=== PATIENT | male | born 1955 | race Caucasian/White ===

== ENCOUNTER → 2017-09-28 11:27 | Outpatient (CLI) | payer OTHER, SELFPAY ==
--- NOTE | 2017-09-28 | CYSPIN_PTH ---
PATIENT: FABIANO PABLO LOC: [facility] U#:[id number] AGE/SX: 69/M ROOM: RE09/28/[address]: ARTURO English : 1955 BED: DIS: SPEC #: [id number] RECD: 09/28/17 13:29 STATUS: JANIYA CLAUDE #: [id number] WILLIE: 09/28/17 00:[address]: Davida Galeas NP DEPT: CYTOLOGY RECD BY: Franklin Song ENTERED: 09/28/17 13:30 SP TYPE: CYSPIN FL OT DR: Dr. Martin Rutledge MD Tissues: Urine Procedures: Pap Stain (control) Special Stain Group II Cytospin Fluid HEADER OPERATION: Not noted PRE-OP DIAGNOSIS: Hematuria TISSUE SUBMITTED: Urine for cytology DIAGNOSIS CYTOLOGY Urine for cytology (cytospin): A few mildly atypical urothelial cells noted. SJ:yadiel 09/29/17 COMMENT Clinical correlation and appropriate follow up are necessary. CYTOLOGY STUDY Slides are reviewed. CYTOLOGY GROSS Received is 10 ml of clear gold fluid labeled with the patient's name and and designated per the requisition as urine. Submitted for cytology preparation. 09/28/17 TC:5 CPT: 75879
[2017-09-28 11:29] LABS: Cytology, Body Fluid / CSF SEE PATHOLOGY REPORT
== END ==
PROVIDERS: Family Provider Family Medicine; PCP Family Medicine; Visit Provider Nurse Practitioner Adult Health
DX: R31.9 Hematuria, unspecified (principal)
CPT/HCPCS: 88108; 88313

== ENCOUNTER 2018-03-14 05:57 | Day surgery (SDC) | payer OTHER, SELFPAY ==
[2018-03-14] VITALS (8 sets, daily range): BP systolic 102–139; BP diastolic 76–106; PULSE 73–83; RESP 16; TEMP 36.4–36.5; O2SAT 93–99
--- NOTE | 2018-03-14 06:29 | PCM.HP.STD ---
Problem List (1) Personal history of colonic polyps Status: Acute History of Present Illness Date of Admission: 03/14/18 The patient is a 62 year old M who has a history of personal history of colon polyps. His most recent colonoscopy was January 14, 2012. I removed a 9 mm polyp from the distal descending colon. Over the past 3 years he has had seizure activity which is required treatment. He states that that is under control. He is not aware of any family history of colon polyps or colon cancer. He has not had any bright red blood per rectum or melena. No abdominal pain. No unexpected weight loss. I saw him in the office on November 25, 2017. In the interim he is been working and has had several trips. This was the first time that would be convenient for him to pursue his endoscopy. There is been no health changes since that time. Past Medical History Past Medical History (Chronic Problems): Chronic Problems (Last Updated 11/25/17 @ 08:02 by Livier Guadalupe) Migraines (Chronic) Hypertension (Chronic) Seizure disorder (Chronic) Medical History: Medical History (Last Updated 11/25/17 @ 08:02 by Livier Guadalupe) Personal history of colonic polyps (Acute) Z86.010 Depression (Acute) F32.9 Sleep apnea (Acute) G47.30 Migraines (Chronic) G43.909 Hypertension (Chronic) I10 Seizure disorder (Chronic) G40.909 Allergies acetaminophen [From Vicodin] Allergy (Verified 03/13/18 09:41) Other hydrocodone [From Vicodin] Allergy (Verified 03/13/18 09:41) Other Home Medications: Ambulatory Orders Medication Instructions Recorded Phenobarbital 64.8 mg PO BID 06/08/13 Sumatriptan Succinate [Imitrex] 50 mg PO DAILY PRN PRN 06/08/13 Escitalopram Oxalate [Lexapro] 10 mg PO DAILY 06/22/16 Meloxicam [Mobic] 7.5 mg PO DAILY 06/22/16 Aspirin/Acetaminophen/Caffeine 1 each PO PRN PRN 03/13/18 [Excedrin Migraine Caplet] Calcium (Elemental) [Os-Jc 500] 500 mg PO DAILY@0800 03/13/18 levETIRAcetam tablet [Keppra] 2,000 mg PO BID 03/13/18 Surgical History: Surgical History (Last Reviewed 11/25/17 @ 08:01 by Livier Guadalupe) Status post lateral meniscus repair (Acute) Z98.890 S/P colonoscopy (Acute) Z98.890 Surgical History: - - Knee surgery following crush injury. Psychiatric History: No pertinent psych hx Smoking Status: Never smoker Review of Systems Constitutional: Denies: Anorexia Cardiovascular: Denies: Chest Pain, Chest Pressure Respiratory: Denies: Cough Gastrointestinal: Denies: Abdominal Pain, Hematochezia Musculoskeletal: Denies: Leg Pain Neurological: Denies: Balance problems Endocrine: Denies: Change in Body Habitus VTE Information - Inpt Only VTE Present on Admission: No - Physical Exam General: Alert, Oriented x3, Cooperative, No apparent distress HEENT: Atraumatic Oral: Moist Mucosa Neck: Supple Lungs: Clear to auscultation Cardiovascular: Regular rate, Regular Rhythm Abdomen: Bowel Sounds Present, Soft, Non Tender Extremities: No clubbing Skin: No rashes Psych/Mental Status: Normal Affect Finger Stick Blood Glucose 98 Assessment/Plan All Active Problems (Last Updated 11/25/17 @ 08:02 by Livier Guadalupe) Personal history of colonic polyps (Acute) Status post lateral meniscus repair (Acute) S/P colonoscopy (Acute) Depression (Acute) Sleep apnea (Acute) I am recommending the patient a colonoscopy because of personal history of colon polyps. He has had an opportunity to ask and have questions answered. He is aware of the technique, benefits, risks, alternatives. We will proceed at his discretion. Eliseo Dumont M.D., F.A.C.S.
--- NOTE | 2018-03-14 07:23 | OP.ENDO_ITS ---
Patient Name: Darrell Duran Procedure Date: 03/14/2018 6:41 AM Date of : 1955 Age: 62 Procedure: Colonoscopy Indications: High risk colon cancer surveillance: Personal history of colonic polyps Providers: Eliseo Dumont MD Medicines: See the Anesthesia note for documentation of the administered medications Patient Profile: Last Colonoscopy: 2011. Complications: No immediate complications. Procedure: Pre-Anesthesia Assessment: - Prior to the procedure, a History and Physical was performed, and patient medications and allergies were reviewed. The patient's tolerance of previous anesthesia was also reviewed. The risks and benefits of the procedure and the sedation options and risks were discussed with the patient. All questions were answered, and informed consent was obtained. Prior Anticoagulants: The patient has taken no previous anticoagulant or antiplatelet agents. ASA Grade Assessment: II - A patient with mild systemic disease. After reviewing the risks and benefits, the patient was deemed in satisfactory condition to undergo the procedure. After I obtained informed consent, the scope was passed under direct vision. Throughout the procedure, the patient's blood pressure, pulse, and oxygen saturations were monitored continuously. The colonoscope was introduced through the anus and advanced to the cecum, identified by appendiceal orifice and ileocecal valve. The colonoscopy was performed without difficulty. The patient tolerated the procedure well. The quality of the bowel preparation was good. The ileocecal valve was photographed. Scope In: 7:05:50 AM Scope Withdrawal Time 0 hours 7 minutes 58 seconds Scope Out: 7:16:08 AM Total Procedure Duration Time 0 hours 10 minutes 18 seconds Findings: The digital rectal exam findings include lax anal tone. Pertinent negatives include normal prostate (size, shape, and consistency). Scattered diverticula were found in the sigmoid colon. The exam was otherwise without abnormality. Impression: - Lax anal tone found on digital rectal exam. - Diverticulosis in the sigmoid colon. - The examination was otherwise normal. - No specimens collected. Recommendation: - Discharge patient to home. - Resume regular diet. - Continue present medications. - Repeat colonoscopy in 5 years for surveillance. Procedure Code(s): --- Professional --- 78335, Colonoscopy, flexible; diagnostic, including collection of specimen(s) by brushing or washing, when performed (separate procedure) Diagnosis Code(s): --- Professional --- Z86.010, Personal history of colonic polyps K57.30, Diverticulosis of large intestine without perforation or abscess without bleeding CPT copyright 2017 [employer]. All rights reserved. The codes documented in this report are preliminary and upon casing man review may be revised to meet current compliance requirements. Eliseo Dumont MD 03/14/2018 7:22:38 AM This report has been signed electronically. Number of Addenda: 0 Note Initiated On: 03/14/2018 6:41 AM
== END 2018-03-14 07:59 | disposition home or self-care (01) ==
LOC: EN 05:59 → AC 06:04
PROVIDERS: Family Provider Family Medicine; PCP Family Medicine; Referring Provider Surgery; Visit Provider Surgery
PROC: 0DJD8ZZ Inspection of Lower Intestinal Tract, Via Natural or Artificial Opening Endoscopic (ICD-10-PCS; CPT 45378; principal; 2018-03-14 06:55)
DX: K57.30 Diverticulosis of large intestine without perforation or abscess without bleeding (principal); Z86.010 Personal history of colon polyps; I10 Essential (primary) hypertension; G40.909 Epilepsy, unspecified, not intractable, without status epilepticus; G43.909 Migraine, unspecified, not intractable, without status migrainosus
CPT/HCPCS: 45378; J7120

== ENCOUNTER 2021-11-13 07:30 | Outpatient (RCR) | payer OTHER, SELFPAY ==
--- NOTE | 2021-10-14 08:03 | HP.PTEVAL_ITS ---
Patient's Visit Information FABIANO PABLO is a 66 year old M referred to Physical Therapy by ELMIRA STEVENS with a diagnosis of R knee OA. Date of Evaluation: 10/14/21 Physical Therapist: Jose Antonio Barraza, PT, ATC - Visit Plan Frequency: 2-3x /Week Duration: 4-6 Weeks Plan: R knee stretching and strengthening, core strengthening, balance and proprio, nustep, and HEP - Subjective Pt reports his R knee has been sore for approximately 3-4 weeks. Pt reports he started mowing his lawn with his push mower and began to experience R knee pain. Pt reports his pain has lessened over this time period, but his knee keeps feeling like it is going to give out. Pt does note a Hx of R knee trauma many years ago after falling off a ladder and having to have a screw drilled into his patella. Pt denies R knee wants to lock up on him. Pt reports walking is difficult because his R knee feels like it wants to give out. Pt reports he has had xrays which reveal OA at this time. Pt denies sleep difficulty at this time secondary to pain as long as he takes Naproxen and occasionally tylenol. 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 Pt has 3 steps from the garage to the house and must negotiate them one step at a time. 3/10 pain while sitting at rest, 7/10 pain at worst (after mowing) - Pain R knee Pain Intensity (Out of 10): 3 Pain Intensity Range: 7 - Objective Neuro: B UE sensation is WNL to light touch. B patellar reflex= 1/3. Palpation: Pt has some pain along the posterior aspect of R knee in popliteal region. moderate crepitus noted with AROM. Girth at joint line: L knee 41 cm, R knee 44 cm. ROM: L knee 0-125, R knee 0-8-108. MMT: L knee flex= 32, ext= 31, R knee flex= 32, ext= 31. Special tests: No positive tests at this time - Balance/Special Test Scores Lower Extremity Functional Score: 39 - Goals Goal 1:: Decrease R knee pain x 50% to aid with sleep Goal Time Frame: 4-6 Weeks Goal 2:: Increase R knee ROM x 20 degrees to aid with ambulation Goal Time Frame: 4-6 Weeks Goal 3:: Pt will be able to ambulate greater that 340' without experiencing R knee wanting to give out Goal Time Frame: 4-6 Weeks Goal 4:: I with HEP Goal Time Frame: 4-6 Weeks - Rehabilitation Potential Physical Therapy Diagnosis: R knee pain, limited ROM, and difficulty with ambulation secondary to R knee OA Rehabilitation Potential: Good - Anticipated Interventions Patient/Client Instruction: Educate patient on: Condition, Plan of Care For the Purpose of:: To decrease pain, To increase ROM, To improve muscle performance and motor function Therapeutic Exercise to Include: Strength training, Endurance training, Balance training, Gait and locomotor training, Active ROM, Dynamic Lumbar Stabilization For the Purpose of:: To decrease pain, To increase ROM, To improve muscle performance and motor function Cryotherapy (ice pack, ice massage): Yes For the Purpose of:: To decrease pain Thank you for the opportunity to evaluate your patient. For Medicare and Medicare HMO plans, please review the plan of care and approve it. It will need to be FAXED BACK to us at [phone] for Medicare purposes. For Medicare only, by signing this I certify the plan of care. Please let me know if there are questions or concerns regarding this plan of care. Physician Signature: Date:
--- NOTE | 2021-11-13 07:54 | HP.PTDCSUM_ITS ---
It has been my pleasure to treat FABIANO PABLO referred by ELMIRA STEVENS, with the diagnosis of R knee OA for a total of 9 visit(s). Discharge Date: Please see the following information for a summary of their discharge status. Subjective: Pt reports he feels ready to be discharged at this time. R knee Pain Intensity (Out of 10): 0 % Improvement: 90 Objective/Function: Pt reports 0/10 pain this date. Pt is I with HEP. Pt is able to ambulate 340' without difficulty. R knee ROM: 0-4-125 degrees. Pt has achieved all Rx goals Goal 1:: Decrease R knee pain x 50% to aid with sleep Goal Progress: Goal Met Goal 2:: Increase R knee ROM x 20 degrees to aid with ambulation Goal Progress: Goal Met Goal 3:: Pt will be able to ambulate greater that 340' without experiencing R knee wanting to give out Goal Progress: Goal Met Goal 4:: I with HEP Goal Progress: Goal Met Plan: Discharge to [facility] If there are questions or concerns regarding this patient's physical therapy, please feel free to call me at [phone]. Thank you for the referral of this patient. Sincerely, Jose Antonio Barraza, PT, ATC Balance/Gait/Functional tests - Balance/Special Test Scores Lower Extremity Functional Score: 76
== END 2021-11-13 09:45 | disposition home or self-care (01) ==
LOC: PT 07:30
PROVIDERS: PCP Family Medicine
DX: M17.11 Unilateral primary osteoarthritis, right knee (principal)
CPT/HCPCS: 97110; 97161; 97164

== ENCOUNTER → 2023-12-23 | Outpatient (CLI) | payer OTHER, SELFPAY | END | disposition home or self-care (01) | PROVIDERS: PCP Family Medicine; Referring Provider Psychiatry & Neurology Sleep Medicine; Visit Provider Psychiatry & Neurology Sleep Medicine | DX: G47.33 Obstructive sleep apnea (adult) (pediatric) (principal) | CPT/HCPCS: 95810 ==

== ENCOUNTER 2024-02-18 12:04 | Emergency (ER) | payer OTHER, SELFPAY ==
[2024-02-18 12:05] VITALS: BP 94/54; PULSE 81; RESP 16; TEMP 35.8; O2SAT 94; BMI 24.0
--- NOTE | 2024-02-18 12:23 | EX.ED.DYSGE1 ---
HPI History of Present Illness Chief Complaint: Edema Detail of Chief Complaint: Facial swelling Informant: patient Narrative Narrative: Patient presents to the emergency department with complaint of facial swelling that he noticed last evening. Patient states that normally sleeps with a CPAP but last night did not. states that he has been having a rash for several months for which she has been seeing a hay buckler and no etiology has been found but the rash tends to come and go. He has never had swelling associated with it. At one point he had a burst of steroids that seemed to help. Patient's also on day 10 of COVID-19. Patient states that yesterday when he went to work he had little bit of a scratchy throat and a deeper voice which was unusual. He has not had significant cough although he did cough more last night than usual. He denies fever. Denies dental pain. Does not take any MARIA D inhibitor's. No new medications otherwise. He denies tongue swelling or difficulty breathing. [facility] Medical History (Updated 02/18/24 @ 13:[address] Jhonny Antunez, DO) Personal history of colonic polyps Depression Sleep apnea Migraines Hypertension Seizure disorder Home Medications ?Medication ?Instructions ?Recorded ?Last Taken ?Type phenobarbital 64.8 mg tablet 64.8 mg PO BID 06/08/13 06/11/17 History sumatriptan succinate 25 mg tablet 50 mg PO DAILY PRN PRN MIGRAINE 06/08/13 06/11/17 History escitalopram oxalate 10 mg tablet 10 mg PO DAILY 06/22/16 06/11/17 History meloxicam 7.5 mg tablet 7.5 mg PO DAILY 06/22/16 06/11/17 History kkpzams-dttvweekwpnhh-eegclzrf 250 1 ea PO PRN PRN Migraine Symptoms 03/13/18 Unknown History mg-250 mg-65 mg tablet (Excedrin Migraine) calcium carbonate (Oyster Shell 500 mg PO DAILY@0800 03/13/18 Unknown History Calcium 500) levetiracetam 1,000 mg tablet 2,000 mg PO BID 03/13/18 Unknown History prednisone 20 mg tablet 20 mg PO BID #10 tabs 02/18/24 Unknown Rx Allergy/AdvReac Type Severity Reaction Status Date / Time acetaminophen (From Vicodin) Allergy Other Verified 02/18/24 12:07 hydrocodone (From Vicodin) Allergy Other Verified 09/21/24 12:07 Family History (Updated 11/25/17 @ 08:03 by Livier Guadalupe) Mother Asthma Diabetes Surgical History (Updated 03/14/18 @ 06:[address] Eliseo Dumont MD) Status post lateral meniscus repair S/P colonoscopy Social History (Updated 11/25/17 @ 08:[address] Eliseo Dumont MD) Smoking Status: Never smoker ROS ROS ED Review of Systems ROS Unobtainable: other Constitutional Constitutional ED: Reports lethargy; Denies chills, fever(s), sweats or weight loss Eyes Eyes: Denies blurry vision, change in vision or diplopia ENT ENT ED: Reports other Details: Facial swelling, sore throat ; Denies rhinorrhea or sore throat Cardiovascular Cardiovascular: Denies chest pain, orthopnea or racing heartbeat Respiratory/Chest Respiratory/Chest: Denies cough, dyspnea, dyspnea on exertion, orthopnea or sputum Gastrointestinal Gastrointestinal: Denies abdominal pain, diarrhea, nausea or vomiting Genitourinary Genitourinary ED: Denies dysuria, hematuria or urinary frequency Musculoskeletal Musculoskeletal: Denies arthralgias, back pain, myalgias or neck pain Integumentary Denies abscess, Abrasions or rash Neurologic Neurologic: Denies headache(s) or weakness Psychiatric Psychiatric: Denies anxiety, depression or suicidal thoughts Endocrine Endocrinology: Denies polydipsia, polyphagia or polyuria Hematologic/Lymphatic Hematologic/Lymphatic: Denies easy bleeding, easy bruising or lymphadenopathy Allergic/Immunologic Allergic/Immunologic ED: Denies mouth swelling, tongue swelling or urticaria EXAM Physical Exam Const Vital Signs: 02/18/24 12:05 Temperature 96.5 F L Temperature Source Temporal Pulse Rate 81 Respiratory Rate 16 Blood Pressure 94/54 L Blood Pressure Mean 67 Pulse Ox 94 Oxygen Delivery Method Room Air Positive well nourished and well developed General Appearance ED: well developed and NAD HEENT Reports TM's clear and moist mucous membranes HEENT Narrative: Patient has edema of the upper lip as well as periorbital edema bilaterally. There is no angioedema of the tongue or oropharynx. normocephalic and atraumatic; Negative for trauma or tenderness Tympanic Membrane ED: Yes TM's clear Eyes PERRL and EOMs intact bilaterally General Eye ED: Negative for pale conjunctiva or scleral icterus Neck no lymphadenopathy, supple and no JVD General: Negative for tenderness Chest Wall inspection of chest normal and palpation of chest normal Chest: Negative for tenderness Resp normal respiratory effort and clear to auscultation bilaterally Resp Narrative: Clear to auscultation bilaterally. No wheezing. Effort and Inspection: Negative for respiratory distress or pain with movement Auscultation: Negative for rhonchi, wheezes or diminished lung sounds Cardio regular rate, regular rhythm, S1 normal heart sound, S2 normal heart sound and no murmurs Peripheral Pulses: pulses 2+ throughout GI normal to inspection, nondistended, normoactive bowel sounds, soft to palpation, non-tender, non-distended and no masses Back/Spine no CVA tenderness and no thoracic nor lumbar tenderness Extremity normal to inspection General Extremety ED: Negative for edema General Extremity: Negative for edema Neuro oriented x3, CN's II-XII intact bilaterally, no sensory deficits noted and gait normal Sensorium / Orientation: awake, alert, oriented to person, oriented to place and oriented to time Motor Exam: strength 5/5 throughout and strength abnormal Psych mental status grossly normal Skin no wounds Skin Narrative: Evaluation of the skin does reveal a erythematous slightly raised rash different size lesions involving the upper thighs into the groins consistent with urticaria. MDM MDM MDM Narrative Medical decision making narrative: Patient with rash on upper thighs and now facial swelling. Patient and state the swelling to the face is actually improved since he took an antihistamine. Given findings of rash on his legs and edema to the upper face suspect possibly allergic reaction possibly related to viral etiology given some of the patient's symptoms as well. Will obtain COVID flu and RSV testing. Will start on prednisone. Patient positive for COVID-19. He did receive a dose of prednisone in the emergency department. Do not see any concerning evidence for angioedema. He does have what looks like some allergic edema of the periorbital soft tissues bilaterally and as well as the nasal and upper lip regions. He has no evidence of dental caries or abscess. He has no tenderness over the sinuses on exam. I feel this is all likely allergic. Will treat with prednisone for home. Do not feel he needs any treatment for COVID and states that he cannot have Paxlovid due to some of the medication interactions with that. Lab Data Attestation: I reviewed the patient's lab results. Discharge Plan Triage Chief Complaint: Edema Other Complaint: Cold Sx ED Provider: Jhonny Antunez Dx/Rx/DC Orders Clinical Impression: COVID-19, Allergic reaction Instructions: Caring for Someone Who Has COVID-19, ED General Allergic Reactions Prescriptions: New prednisone 20 mg tablet 20 mg PO BID Qty: 10 0RF No Action phenobarbital 64.8 MG tablet 64.8 mg PO BID sumatriptan succinate 25 MG tablet 50 mg PO DAILY PRN PRN (Reason: MIGRAINE) Patient Comments: ONE TAB CAN REPEAT IN 2HRS IF NEEDED meloxicam 7.5 MG tablet 7.5 mg PO DAILY escitalopram oxalate 10 MG tablet 10 mg PO DAILY calcium carbonate [Oyster Shell Calcium 500] 500 MG tablet 500 mg PO DAILY@0800 [id number] [Excedrin Migraine] 1 EACH tablet 1 ea PO PRN PRN (Reason: Migraine Symptoms) levetiracetam 1,000 MG tablet 2,000 mg PO BID Primary Care Provider: John Lopez Referrals: John Lopez MD [Primary Care Provider] - Print Language: Danish Disposition Disposition: Home, Self Care
[2024-02-18] MEDS: predniSONE 20 MG Tablet 60 MG PO (12:34)
== END 2024-02-18 13:53 | disposition home or self-care (01) ==
PROVIDERS: Emergency Provider Emergency Medicine; PCP Family Medicine; Visit Provider Emergency Medicine
DX: U07.1 COVID-19 (principal); I10 Essential (primary) hypertension; R60.0 Localized edema; T78.40XA Allergy, unspecified, initial encounter; R21 Rash and other nonspecific skin eruption; X58.XXXA Exposure to other specified factors, initial encounter
CPT/HCPCS: 87631; 99282